=== PATIENT | male | born 1965 | race African-American/Black ===

== ENCOUNTER 2018-01-31 02:28 | Inpatient (IN) | payer MEDICAID ==
[~2018-01-31] VITALS: Ht 190.5 cm; Wt 115.7 kg
[~2018-01-31 02:28] MED LIST: AMLO5TAB88 PO; CEPH500C2 PO; LOSA100T14 MT; OMEP20TA15 PO
[2018-01-31] MEDS ORDERED: PIPERACILLIN/TAZ 3.375G PREMIX 50 ML IV ONE ×2 (05:15→09:00)
[2018-01-31] MEDS ORDERED: SODIUM CHLORIDE 0.9% 1000ML BAG (SEPSIS BOLUS) IV ONE (05:15)
[2018-01-31] MEDS ORDERED: VANCOMYCIN 1 G PREMIX 200 ML IV ONE ×2 (05:15→09:00)
[2018-01-31 06:02] LABS: EOSINOPHILS % 2.3 % (0.0-5.0); HEMATOCRIT. 35.4 % (42.0-52.0); HEMOGLOBIN. 12.1 g/dL (14.0-18.0); LYMPHOCYTES % 34.6 % (20.0-50.0); MEAN CORPUSCULAR HEMOGLOBIN 32.2 pg (28.0-32.0); MEAN CORPUSCULAR VOLUME 94.1 fL (80.0-94.0); MEAN PLATELET VOLUME 9.9 fl (7.4-10.4); MONOCYTES % 9.5 % (2.0-8.0); NEUTROPHILS % 51.6 % (40.0-76.0); PLATELET 248 x1000/uL (130-400); RED BLOOD CELL COUNT 3.76 mill/uL (4.7-6.1); RED CELL DISTRIBUTION WIDTH 15.5 % (11.6-14.6)
[2018-01-31 06:09] LABS: CHLORIDE 104 mEq/L (98-107)
[2018-01-31] MEDS ORDERED: AMLODIPINE 10MG TABLET PO ONE (09:30)
[2018-01-31 09:35] LABS: CLARITY URINE CLEAR (CLEAR); COLOR URINE YELLOW (YELLOW); KETONES URINE NEGATIVE (NEGATIVE); LEUKOCYTE ESTERASE URINE NEGATIVE (NEGATIVE); NITRITE URINE NEGATIVE (NEGATIVE); OCCULT BLOOD URINE NEGATIVE (NEGATIVE); PH URINE 6.5 (4.5-8.0); PROTEIN URINE NEGATIVE (NEGATIVE); SPECIFIC GRAVITY URINE 1.012 (1.005-1.030); UROBILINOGEN URINE 0.2 E.U./dL (0.2-1.0)
[2018-01-31] MEDS ORDERED: CLINDAMYCIN 900 MG in DEXTROSE 5% WATER 50 ML IV SCH (11:30)
[2018-01-31] MEDS ORDERED: ACETAMINOPHEN 325MG TABLET PO PRN (11:30)
[2018-01-31] MEDS: CLONIDINE 0.1MG TABLET PO PRN ×2 (11:50→19:34)
[2018-01-31] MEDS ORDERED: LABETALOL HCL 20MG/4ML CARPUJECT IV ONE (14:00)
[2018-01-31] MEDS: LOSARTAN POTASSIUM 100 MG TABLET PO SCH (15:50)
[2018-01-31] MEDS: NITROGLYCERIN OINT 1GM/INCH UDPKT TD SCH ×2 (15:50→22:39)
[2018-01-31] MEDS ORDERED: HYDRALAZINE 20MG/ML VIAL IV PRN ×2 (16:54→23:00)
[2018-01-31] MEDS ORDERED: METOPROLOL TARTRATE 50MG TABLET PO NR (18:36)
[2018-01-31 18:48] LABS: *COCAINE SCREEN URINE PRESUMTIVE POSITIVE (NEGATIVE); METHADONE URINE SCREEN NEGATIVE (NEGATIVE)
[2018-01-31 18:49] LABS: *AMPHETAMINES SCREEN URINE PRESUMTIVE POSITIVE (NEGATIVE); *BARBITURATES SCREEN URINE NEGATIVE (NEGATIVE); *BENZODIAZEPINES SCREEN URINE NEGATIVE (NEGATIVE); CANNABINOID URINE SCREEN NEGATIVE (NEGATIVE); OPIATES URINE SCREEN NEGATIVE (NEGATIVE); PHENCYCLIDINE URINE SCREEN NEGATIVE (NEGATIVE)
[2018-01-31 20:00] VITALS: BP 150/107
[2018-01-31 22:30] VITALS: BP 150/107
[2018-01-31] MEDS: AMLODIPINE 5MG TABLET PO SCH (22:39)
[2018-01-31] MEDS: METOPROLOL TARTRATE 50MG TABLET PO SCH (22:40)
[2018-02-01] VITALS (7 sets, daily range): BP systolic 115–159; BP diastolic 50–90
[2018-02-01] MEDS: CLINDAMYCIN 900 MG in DEXTROSE 5% WATER 50 ML IV SCH ×2 (00:40→08:26)
[2018-02-01] MEDS ORDERED: FURO-152 PO (06:30)
[2018-02-01] MEDS ORDERED: BENA20TA10 MT (06:32)
[2018-02-01] MEDS ORDERED: BENA20TA10 PO (06:32)
[2018-02-01] MEDS ORDERED: BICT1TAB PO (06:34)
[2018-02-01] MEDS ORDERED: CEPH500T MT (06:34)
[2018-02-01] MEDS: NITROGLYCERIN OINT 1GM/INCH UDPKT TD SCH ×3 (06:52→21:12)
[2018-02-01 08:13] LABS: BASOPHILS % 0.9 % (0.0-2.0); EOSINOPHILS % 1.6 % (0.0-5.0); HEMATOCRIT. 37.3 % (42.0-52.0); HEMOGLOBIN. 12.5 g/dL (14.0-18.0); LYMPHOCYTES % 28.6 % (20.0-50.0); MEAN CORPUSCULAR HEMOGLOBIN 31.7 pg (28.0-32.0); MEAN CORPUSCULAR VOLUME 94.4 fL (80.0-94.0); MEAN PLATELET VOLUME 10.3 fl (7.4-10.4); MONOCYTES % 7.9 % (2.0-8.0); PLATELET 249 x1000/uL (130-400); RED BLOOD CELL COUNT 3.95 mill/uL (4.7-6.1); RED CELL DISTRIBUTION WIDTH 15.7 % (11.6-14.6)
[2018-02-01] MEDS: AMLODIPINE 5MG TABLET PO SCH ×2 (08:27→21:12)
[2018-02-01] MEDS: LOSARTAN POTASSIUM 100 MG TABLET PO SCH (08:27)
[2018-02-01] MEDS: ENOXAPARIN 40MG/0.4ML SYR SUBCUT SCH (08:27)
[2018-02-01 08:33] LABS: CHLORIDE 105 mEq/L (98-107)
[2018-02-01] MEDS: METOPROLOL TARTRATE 50MG TABLET PO SCH ×2 (08:42→21:11)
[2018-02-01] MEDS ORDERED: VANCOMYCIN 1,500 MG in DEXT 5% WATER 250 ML IV NR (17:00)
[2018-02-01] MEDS ORDERED: VANCOMYCIN 1,500 MG in DEXT 5% WATER 500 ML IV NR (17:00)
[2018-02-02] VITALS: BP 147/79
[2018-02-02] MEDS: VANCOMYCIN 1 G PREMIX 200 ML IV SCH ×2 (01:19→09:18)
[2018-02-02 04:00] VITALS: BP 115/72
[2018-02-02] MEDS: NITROGLYCERIN OINT 1GM/INCH UDPKT TD SCH (06:16)
[2018-02-02 08:00] VITALS: BP 165/97
[2018-02-02 08:10] LABS: EOSINOPHILS % 2.1 % (0.0-5.0); HEMATOCRIT. 37.6 % (42.0-52.0); HEMOGLOBIN. 12.4 g/dL (14.0-18.0); LYMPHOCYTES % 33.6 % (20.0-50.0); MEAN CORPUSCULAR VOLUME 94.2 fL (80.0-94.0); MEAN PLATELET VOLUME 9.8 fl (7.4-10.4); MONOCYTES % 11.2 % (2.0-8.0); NEUTROPHILS % 52.1 % (40.0-76.0); PLATELET 243 x1000/uL (130-400); RED BLOOD CELL COUNT 3.99 mill/uL (4.7-6.1)
[2018-02-02 09:06] LABS: ABSOLUTE EOSINOPHILS 0.1 x10E3/uL (0.0-0.4); ABSOLUTE LYMPHOCYTES 1.5 x10E3/uL (0.7-3.1); ABSOLUTE MONOCYTES 0.3 x10E3/uL (0.1-0.9); BASOPHILS 1 % (Not Estab.); HEMATOCRIT 36.6 % (37.5-51.0); IMMATURE GRANULOCYTES 0 % (Not Estab.); LYMPHOCYTES 38 % (Not Estab.); MEAN CORPUSCULAR HEMOGLOBIN 30.8 pg (26.6-33.0); MEAN CORPUSCULAR HGB CONC. 32.8 g/dL (31.5-35.7); MEAN CORPUSCULAR VOLUME 94 fL (79-97); MONOCYTES 8 % (Not Estab.); NEUTROPHILS 50 % (Not Estab.); PLATELETS 303 x10E3/uL (150-379); RED CELL DISTRIBUTION WIDTH 15.6 % (12.3-15.4)
[2018-02-02] MEDS: METOPROLOL TARTRATE 50MG TABLET PO SCH (09:17)
[2018-02-02] MEDS: LOSARTAN POTASSIUM 100 MG TABLET PO SCH (09:17)
[2018-02-02] MEDS: AMLODIPINE 5MG TABLET PO SCH (09:17)
[2018-02-02] MEDS: ENOXAPARIN 40MG/0.4ML SYR SUBCUT SCH (09:18)
[2018-02-02 11:00] LABS: CHLORIDE 104 mEq/L (98-107)
[2018-02-02 12:00] VITALS: BP 130/71
[2018-02-02 13:11] LABS: % CD 3 POS. LYMPHOCYTES 88.5 % (57.5-86.2); % CD 4 POS. LYMPHOCYTES 46.4 % (30.8-58.5); % CD 8 POS. LYMPH 42.9 % (12.0-35.5); ABSOLUTE CD 3 1328 /uL (622-2402); ABSOLUTE CD 4 HELPER 696 /uL (359-1519); ABSOLUTE CD 8 SUPPRESSOR 644 /uL (109-897); CD4/CD8 RATIO 1.08 (0.92-3.72)
[2018-02-02 16:00] VITALS: BP 134/85
[2018-02-02] MEDS: DILTIAZEM HCL 90MG TABLET PO SCH (18:25)
[2018-02-02 20:34] VITALS: BP 135/78
[2018-02-02] MEDS: ENOXAPARIN 30MG/0.3ML SYR SUBCUT SCH (21:58)
[2018-02-02] MEDS ORDERED: VANCOMYCIN 1500MG in DEXTROSE 5% WATER 250ML IV SCH (22:00)
[2018-02-02] MEDS: VANCOMYCIN 1500MG in DEXTROSE 5% WATER 250ML IV SCH (23:47)
[2018-02-03 00:05] VITALS: BP 129/81
[2018-02-03] MEDS: DILTIAZEM HCL 90MG TABLET PO SCH ×4 (00:11→18:29)
[2018-02-03 04:00] VITALS: BP 145/91
[2018-02-03 08:00] VITALS: BP 127/86
[2018-02-03] MEDS: LOSARTAN POTASSIUM 100 MG TABLET PO SCH (08:56)
[2018-02-03] MEDS: ENOXAPARIN 30MG/0.3ML SYR SUBCUT SCH ×2 (08:56→21:23)
[2018-02-03] MEDS: VANCOMYCIN 1500MG in DEXTROSE 5% WATER 250ML IV SCH ×2 (09:41→21:23)
[2018-02-03 11:22] LABS: BASOPHILS % 0.9 % (0.0-2.0); EOSINOPHILS % 2.7 % (0.0-5.0); HEMATOCRIT. 38.1 % (42.0-52.0); HEMOGLOBIN. 12.9 g/dL (14.0-18.0); LYMPHOCYTES % 32.7 % (20.0-50.0); MEAN CORPUSCULAR HEMOGLOBIN 31.9 pg (28.0-32.0); MEAN PLATELET VOLUME 10.1 fl (7.4-10.4); MONOCYTES % 10.5 % (2.0-8.0); NEUTROPHILS % 53.2 % (40.0-76.0); PLATELET 228 x1000/uL (130-400); RED BLOOD CELL COUNT 4.05 mill/uL (4.7-6.1); RED CELL DISTRIBUTION WIDTH 14.8 % (11.6-14.6)
[2018-02-03 12:00] VITALS: BP 143/86
[2018-02-03 12:00] LABS: CHLORIDE 101 mEq/L (98-107)
[2018-02-03 16:00] VITALS: BP 160/93
[2018-02-03 20:00] VITALS: BP 131/73
[2018-02-04] VITALS (7 sets, daily range): BP systolic 125–153; BP diastolic 62–96
[2018-02-04] MEDS: DILTIAZEM HCL 90MG TABLET PO SCH ×4 (00:43→18:08)
[2018-02-04 07:24] LABS: BASOPHILS % 0.7 % (0.0-2.0); EOSINOPHILS % 2.6 % (0.0-5.0); HEMOGLOBIN. 13.5 g/dL (14.0-18.0); LYMPHOCYTES % 38.1 % (20.0-50.0); MEAN CORPUSCULAR HEMOGLOBIN 31.5 pg (28.0-32.0); MEAN CORPUSCULAR VOLUME 93.8 fL (80.0-94.0); MEAN PLATELET VOLUME 9.7 fl (7.4-10.4); MONOCYTES % 9.7 % (2.0-8.0); NEUTROPHILS % 48.9 % (40.0-76.0); PLATELET 235 x1000/uL (130-400); RED BLOOD CELL COUNT 4.27 mill/uL (4.7-6.1); RED CELL DISTRIBUTION WIDTH 14.8 % (11.6-14.6)
[2018-02-04 07:42] LABS: CHLORIDE 102 mEq/L (98-107)
[2018-02-04] MEDS: LOSARTAN POTASSIUM 100 MG TABLET PO SCH (08:59)
[2018-02-04] MEDS: VANCOMYCIN 1500MG in DEXTROSE 5% WATER 250ML IV SCH ×2 (10:10→22:12)
[2018-02-04] MEDS: ENOXAPARIN 30MG/0.3ML SYR SUBCUT SCH ×2 (10:11→22:12)
[2018-02-05] VITALS: BP 138/73
[2018-02-05] MEDS: DILTIAZEM HCL 90MG TABLET PO SCH ×4 (00:52→17:33)
[2018-02-05 04:00] VITALS: BP 159/89
[2018-02-05 07:37] LABS: EOSINOPHILS % 2.4 % (0.0-5.0); HEMATOCRIT. 39.4 % (42.0-52.0); HEMOGLOBIN. 13.2 g/dL (14.0-18.0); LYMPHOCYTES % 34.5 % (20.0-50.0); MEAN CORPUSCULAR HEMOGLOBIN 31.4 pg (28.0-32.0); MEAN CORPUSCULAR VOLUME 93.8 fL (80.0-94.0); MONOCYTES % 9.6 % (2.0-8.0); NEUTROPHILS % 52.5 % (40.0-76.0); PLATELET 221 x1000/uL (130-400); RED CELL DISTRIBUTION WIDTH 14.8 % (11.6-14.6)
[2018-02-05 08:06] LABS: CHLORIDE 103 mEq/L (98-107)
[2018-02-05 08:21] VITALS: BP 165/97
[2018-02-05] MEDS: LOSARTAN POTASSIUM 100 MG TABLET PO SCH (09:00)
[2018-02-05] MEDS: ENOXAPARIN 30MG/0.3ML SYR SUBCUT SCH ×2 (09:00→20:32)
[2018-02-05] MEDS: VANCOMYCIN 1500MG in DEXTROSE 5% WATER 250ML IV SCH ×2 (09:52→21:58)
[2018-02-05 12:00] VITALS: BP 124/62
[2018-02-05 16:00] VITALS: BP 129/79
[2018-02-05 20:00] VITALS: BP 144/72
[2018-02-06] VITALS: BP 148/85
[2018-02-06] MEDS: DILTIAZEM HCL 90MG TABLET PO SCH ×4 (00:02→18:33)
[2018-02-06 04:00] VITALS: BP 160/77
[2018-02-06 08:00] VITALS: BP 143/82
[2018-02-06] MEDS: ENOXAPARIN 30MG/0.3ML SYR SUBCUT SCH ×2 (08:47→20:19)
[2018-02-06] MEDS: LOSARTAN POTASSIUM 100 MG TABLET PO SCH (08:47)
[2018-02-06] MEDS: VANCOMYCIN 1500MG in DEXTROSE 5% WATER 250ML IV SCH ×2 (10:01→21:26)
[2018-02-06 12:00] VITALS: BP 137/76
[2018-02-06] MEDS: TAMSULOSIN HCL 0.4MG SR CAPSULE PO SCH (14:02)
[2018-02-06 16:00] VITALS: BP 138/89
[2018-02-06 20:00] VITALS: BP 165/85
[2018-02-06] MEDS: CLONIDINE 0.1MG TABLET PO PRN (20:49)
[2018-02-07] VITALS: BP 137/73
[2018-02-07] MEDS: DILTIAZEM HCL 90MG TABLET PO SCH ×5 (00:02→23:24)
[2018-02-07 04:00] VITALS: BP 129/74
[2018-02-07 07:35] LABS: BASOPHILS % 0.9 % (0.0-2.0); EOSINOPHILS % 3.2 % (0.0-5.0); HEMATOCRIT. 38.7 % (42.0-52.0); HEMOGLOBIN. 13.1 g/dL (14.0-18.0); LYMPHOCYTES % 31.5 % (20.0-50.0); MEAN CORPUSCULAR HEMOGLOBIN 31.8 pg (28.0-32.0); MEAN CORPUSCULAR VOLUME 94.4 fL (80.0-94.0); MEAN PLATELET VOLUME 10.1 fl (7.4-10.4); MONOCYTES % 11.5 % (2.0-8.0); NEUTROPHILS % 52.9 % (40.0-76.0); PLATELET 198 x1000/uL (130-400); RED BLOOD CELL COUNT 4.11 mill/uL (4.7-6.1); RED CELL DISTRIBUTION WIDTH 15.1 % (11.6-14.6)
[2018-02-07 08:00] VITALS: BP 131/85
[2018-02-07] MEDS: LOSARTAN POTASSIUM 100 MG TABLET PO SCH (08:41)
[2018-02-07] MEDS: TAMSULOSIN HCL 0.4MG SR CAPSULE PO SCH (08:42)
[2018-02-07] MEDS: ENOXAPARIN 30MG/0.3ML SYR SUBCUT SCH ×2 (08:44→21:22)
[2018-02-07 08:54] LABS: CHLORIDE 104 mEq/L (98-107)
[2018-02-07] MEDS: VANCOMYCIN 1500MG in DEXTROSE 5% WATER 250ML IV SCH ×2 (11:18→21:22)
[2018-02-07 12:00] VITALS: BP 129/76
[2018-02-07 16:00] VITALS: BP 116/63
[2018-02-07 20:00] VITALS: BP 126/77
[2018-02-08] VITALS: BP 152/94
[2018-02-08 04:00] VITALS: BP 144/96
[2018-02-08] MEDS: DILTIAZEM HCL 90MG TABLET PO SCH ×2 (05:15→06:30)
[2018-02-08 08:00] VITALS: BP 150/93
[2018-02-08] MEDS: LOSARTAN POTASSIUM 100 MG TABLET PO SCH (08:30)
[2018-02-08] MEDS: ENOXAPARIN 30MG/0.3ML SYR SUBCUT SCH (08:30)
[2018-02-08] MEDS: TAMSULOSIN HCL 0.4MG SR CAPSULE PO SCH (08:30)
[2018-02-08 09:06] LABS: HIV 1 ABS Positive (Negative); HIV 2 ABS Negative (Negative); HIV SCREEN 4G Reactive (Non Reactive); INTERPRETATION HIV-1 Positive (.)
[2018-02-08] MEDS: VANCOMYCIN 1500MG in DEXTROSE 5% WATER 250ML IV SCH (10:00)
[2018-02-08 11:13] VITALS: BP 150/93
== END 2018-02-08 14:45 | disposition home or self-care (01) | DRG 894 ==
LOC: ER 02:28 → 5WST 09:17 → ENRESERV 09:19 → CANRESERV 09:19 → EDBEDREQ 09:34 → EDBEDREQTM 09:34 → EDBEDREQSVC 09:34 → CANRESERV 15:24 → ENRESERV 15:24
PROVIDERS: ADMIT Internal Medicine; ATTEND Internal Medicine
PROC: 0JBQ0ZZ Excision of Right Foot Subcutaneous Tissue and Fascia, Open Approach (ICD-10-PCS; principal; 2018-02-04)
DX: B20 Human immunodeficiency virus [HIV] disease (principal); E11.40 Type 2 diabetes mellitus with diabetic neuropathy, unspecified; E11.621 Type 2 diabetes mellitus with foot ulcer; I07.1 Rheumatic tricuspid insufficiency; M86.8X8 Other osteomyelitis, other site; L03.115 Cellulitis of right lower limb; F14.10 Cocaine abuse, uncomplicated; F15.10 Other stimulant abuse, uncomplicated; F17.200 Nicotine dependence, unspecified, uncomplicated; I50.9 Heart failure, unspecified; I11.0 Hypertensive heart disease with heart failure; J44.9 Chronic obstructive pulmonary disease, unspecified; E11.69 Type 2 diabetes mellitus with other specified complication; E78.5 Hyperlipidemia, unspecified; I35.1 Nonrheumatic aortic (valve) insufficiency; L03.032 Cellulitis of left toe; L84 Corns and callosities; M20.10 Hallux valgus (acquired), unspecified foot; D50.0 Iron deficiency anemia secondary to blood loss (chronic); Z71.6 Tobacco abuse counseling; Z59.0 Homelessness
CPT/HCPCS: 36415; 71045; 73721; 80048; 80202; 80305; 82962; 83036; 83605; 83880; 84145; 84484; 86359; 86360; 86701; 86702; 87389; 93005; 93306; 93971; 96365; 97116; 97162; 97530; 99285; 99406; J0360; J1650; J2543; J3370; J3490; J7030; J7050; J7060

== ENCOUNTER 2018-03-14 05:47 | Inpatient (IN) | payer MEDICAID, OTHER ==
[~2018-03-14] VITALS: Ht 190.5 cm; Wt 113.4 kg
[~2018-03-14 05:47] MED LIST changes: -AMLO5TAB88 PO; +BICT1TAB PO; -CEPH500C2 PO; +FURO-152 PO
[2018-03-14 06:48] LABS: BASOPHILS % 1.1 % (0.0-2.0); HEMATOCRIT. 33.9 % (42.0-52.0); HEMOGLOBIN. 11.4 g/dL (14.0-18.0); LYMPHOCYTES % 16.3 % (20.0-50.0); MEAN CORPUSCULAR HEMOGLOBIN 31.9 pg (28.0-32.0); MEAN CORPUSCULAR VOLUME 94.8 fL (80.0-94.0); MEAN PLATELET VOLUME 9.8 fl (7.4-10.4); NEUTROPHILS % 69.6 % (40.0-76.0); PLATELET 186 x1000/uL (130-400); RED BLOOD CELL COUNT 3.57 mill/uL (4.7-6.1); RED CELL DISTRIBUTION WIDTH 15.2 % (11.6-14.6)
[2018-03-14 06:54] LABS: CHLORIDE 104 mEq/L (98-107)
[2018-03-14] MEDS ORDERED: CLINDAMYCIN 600 MG in DEXTROSE 5% WATER 50 ML IV ONE (07:30)
[2018-03-14] MEDS ORDERED: MAGNESIUM/ALUMINUM HYDROXIDE/SIMETHICONE 30ML UDC PO PRN (09:00)
[2018-03-14] MEDS ORDERED: DOCUSATE SODIUM 100MG CAPSULE PO PRN (09:00)
[2018-03-14] MEDS ORDERED: ENOXAPARIN 40MG/0.4ML SYR SUBCUT SCH (09:00)
[2018-03-14] MEDS ORDERED: ONDANSETRON HCL 4MG/2ML INJ IV PRN (09:00)
[2018-03-14] MEDS ORDERED: CLONIDINE 0.1MG TABLET PO PRN (09:00)
[2018-03-14] MEDS ORDERED: IPRATROPIUM/ALBUTEROL 0.5-3(2.5)MG/3ML NEB INH PRN (09:00)
[2018-03-14] MEDS ORDERED: ACETAMINOPHEN 325MG TABLET PO PRN (09:00)
[2018-03-14 12:23] LABS: HEPATITIS B SURFACE ANTIGEN NEGATIVE
[2018-03-14 12:53] LABS: HEPATITIS A AB IGM NEGATIVE (NEGATIVE)
[2018-03-14] MEDS: CLONIDINE 0.1MG TABLET PO SCH ×2 (13:30→21:15)
[2018-03-14 14:39] LABS: CLARITY URINE CLEAR (CLEAR); COLOR URINE YELLOW (YELLOW); KETONES URINE NEGATIVE (NEGATIVE); LEUKOCYTE ESTERASE URINE NEGATIVE (NEGATIVE); NITRITE URINE NEGATIVE (NEGATIVE); OCCULT BLOOD URINE NEGATIVE (NEGATIVE); PH URINE 7.5 (4.5-8.0); PROTEIN URINE NEGATIVE (NEGATIVE); SPECIFIC GRAVITY URINE 1.007 (1.005-1.030); UROBILINOGEN URINE 0.2 E.U./dL (0.2-1.0)
[2018-03-14 15:18] LABS: *AMPHETAMINES SCREEN URINE PRESUMTIVE POSITIVE (NEGATIVE); *BARBITURATES SCREEN URINE NEGATIVE (NEGATIVE); *BENZODIAZEPINES SCREEN URINE NEGATIVE (NEGATIVE); *COCAINE SCREEN URINE PRESUMTIVE POSITIVE (NEGATIVE); METHADONE URINE SCREEN NEGATIVE (NEGATIVE); OPIATES URINE SCREEN NEGATIVE (NEGATIVE)
[2018-03-14 15:19] LABS: CANNABINOID URINE SCREEN NEGATIVE (NEGATIVE); PHENCYCLIDINE URINE SCREEN NEGATIVE (NEGATIVE)
[2018-03-14] MEDS ORDERED: EMTRICITABINE 200MG CAPSULE PO SCH (16:15)
[2018-03-14] MEDS ORDERED: TENOFOVIR 300MG TABLET PO SCH (16:15)
[2018-03-14 18:57] VITALS: BP 143/81
[2018-03-14 20:00] VITALS: BP 137/90
[2018-03-14] MEDS: AMLODIPINE 5MG TABLET PO SCH (21:14)
[2018-03-14] MEDS: OMEPRAZOLE 20MG CAPSULE EXTENDED RELEASE PO SCH (21:14)
[2018-03-14] MEDS: ENOXAPARIN 30MG/0.3ML SYR SUBCUT SCH (21:15)
[2018-03-14] MEDS ORDERED: NIFE60TA64 MT (22:03)
[2018-03-15] VITALS: BP 143/96
[2018-03-15 04:00] VITALS: BP 138/95
[2018-03-15] MEDS: OMEPRAZOLE 20MG CAPSULE EXTENDED RELEASE PO SCH ×2 (06:25→20:47)
[2018-03-15] MEDS: CLONIDINE 0.1MG TABLET PO SCH ×3 (06:26→20:48)
[2018-03-15 06:29] LABS: BASOPHILS % 0.7 % (0.0-2.0); HEMATOCRIT. 38.6 % (42.0-52.0); HEMOGLOBIN. 12.9 g/dL (14.0-18.0); MEAN CORPUSCULAR HEMOGLOBIN 31.9 pg (28.0-32.0); MEAN CORPUSCULAR VOLUME 95.1 fL (80.0-94.0); MEAN PLATELET VOLUME 9.9 fl (7.4-10.4); NEUTROPHILS % 75.3 % (40.0-76.0); PLATELET 208 x1000/uL (130-400); RED BLOOD CELL COUNT 4.06 mill/uL (4.7-6.1); RED CELL DISTRIBUTION WIDTH 15.4 % (11.6-14.6)
[2018-03-15 06:32] LABS: CHLORIDE 104 mEq/L (98-107)
[2018-03-15] MEDS ORDERED: TENOFOVIR ALAFENAMIDE 25 MG PO SCH (09:00)
[2018-03-15] MEDS ORDERED: EMTRICITABINE 200 MG PO SCH (09:00)
[2018-03-15] MEDS ORDERED: BICTEGRAVIR PO SCH (09:00)
[2018-03-15 09:06] LABS: ABSOLUTE EOSINOPHILS 0.1 x10E3/uL (0.0-0.4); ABSOLUTE LYMPHOCYTES 0.9 x10E3/uL (0.7-3.1); ABSOLUTE MONOCYTES 0.6 x10E3/uL (0.1-0.9); ABSOLUTE NEUTROPHILS 3.7 x10E3/uL (1.4-7.0); BASOPHILS 1 % (Not Estab.); HEMATOCRIT 36.5 % (37.5-51.0); HEMOGLOBIN 11.9 g/dL (13.0-17.7); IMMATURE GRANULOCYTES 0 % (Not Estab.); LYMPHOCYTES 16 % (Not Estab.); MEAN CORPUSCULAR HGB CONC. 32.6 g/dL (31.5-35.7); MEAN CORPUSCULAR VOLUME 95 fL (79-97); MONOCYTES 12 % (Not Estab.); NEUTROPHILS 69 % (Not Estab.); PLATELETS 228 x10E3/uL (150-379); RBC 3.84 x10E6/uL (4.14-5.80); RED CELL DISTRIBUTION WIDTH 15.4 % (12.3-15.4); WBC 5.4 x10E3/uL (3.4-10.8)
[2018-03-15] MEDS: AMLODIPINE 5MG TABLET PO SCH ×2 (10:13→20:48)
[2018-03-15] MEDS: ASPIRIN 81MG EC TABLET PO SCH (10:14)
[2018-03-15] MEDS: ENOXAPARIN 30MG/0.3ML SYR SUBCUT SCH ×2 (10:14→20:47)
[2018-03-15 13:09] LABS: % CD 3 POS. LYMPHOCYTES 85.7 % (57.5-86.2); % CD 4 POS. LYMPHOCYTES 51.4 % (30.8-58.5); % CD 8 POS. LYMPH 34.4 % (12.0-35.5); ABSOLUTE CD 3 771 /uL (622-2402); ABSOLUTE CD 4 HELPER 463 /uL (359-1519); ABSOLUTE CD 8 SUPPRESSOR 310 /uL (109-897); CD4/CD8 RATIO 1.49 (0.92-3.72)
[2018-03-15] MEDS ORDERED: VANCOMYCIN 2,000 MG in DEXT 5% WATER 500 ML IV NR (18:00)
[2018-03-15] MEDS: BIKTARVY PO SCH (18:31)
[2018-03-15 20:00] VITALS: BP 136/68
[2018-03-16] VITALS: BP 129/72
[2018-03-16] MEDS ORDERED: VANCOMYCIN 1 G PREMIX 200 ML IV SCH (02:00)
[2018-03-16 04:00] VITALS: BP 148/90
[2018-03-16] MEDS: CLONIDINE 0.1MG TABLET PO SCH ×3 (05:12→20:19)
[2018-03-16] MEDS: OMEPRAZOLE 20MG CAPSULE EXTENDED RELEASE PO SCH ×2 (06:21→20:20)
[2018-03-16 08:00] VITALS: BP 136/87
[2018-03-16 08:05] LABS: BASOPHILS % 0.7 % (0.0-2.0); EOSINOPHILS % 1.3 % (0.0-5.0); HEMOGLOBIN. 12.5 g/dL (14.0-18.0); MEAN CORPUSCULAR HEMOGLOBIN 31.4 pg (28.0-32.0); MEAN CORPUSCULAR VOLUME 95.2 fL (80.0-94.0); MEAN PLATELET VOLUME 9.6 fl (7.4-10.4); MONOCYTES % 9.1 % (2.0-8.0); NEUTROPHILS % 67.9 % (40.0-76.0); PLATELET 201 x1000/uL (130-400); RED BLOOD CELL COUNT 3.99 mill/uL (4.7-6.1); RED CELL DISTRIBUTION WIDTH 15.4 % (11.6-14.6)
[2018-03-16 08:07] LABS: CHLORIDE 103 mEq/L (98-107)
[2018-03-16] MEDS: BIKTARVY PO SCH (08:29)
[2018-03-16] MEDS: ASPIRIN 81MG EC TABLET PO SCH (08:29)
[2018-03-16] MEDS: AMLODIPINE 5MG TABLET PO SCH ×2 (08:29→20:20)
[2018-03-16] MEDS: ENOXAPARIN 30MG/0.3ML SYR SUBCUT SCH ×2 (08:30→20:19)
[2018-03-16] MEDS ORDERED: TENOFOVIR ALAFENAMIDE 25 MG PO SCH (09:00)
[2018-03-16] MEDS ORDERED: EMTRICITABINE 200 MG PO SCH (09:00)
[2018-03-16] MEDS ORDERED: BICTEGRAVIR PO SCH (09:00)
[2018-03-16 12:00] VITALS: BP 142/89
[2018-03-16] MEDS: VANCOMYCIN 1250MG in DEXTROSE 5% WATER 250ML IV SCH (14:13)
[2018-03-16 16:00] VITALS: BP 152/86
[2018-03-16 20:00] VITALS: BP_SYST 125; BP_SYST 155; BP_DIAS 88; BP_DIAS 90
[2018-03-17] VITALS: BP 139/85
[2018-03-17] MEDS: VANCOMYCIN 1250MG in DEXTROSE 5% WATER 250ML IV SCH ×2 (02:28→13:07)
[2018-03-17 04:00] VITALS: BP 162/92
[2018-03-17] MEDS: CLONIDINE 0.1MG TABLET PO SCH ×3 (05:38→22:53)
[2018-03-17] MEDS: OMEPRAZOLE 20MG CAPSULE EXTENDED RELEASE PO SCH ×2 (06:24→22:51)
[2018-03-17 07:00] LABS: BASOPHILS % 0.8 % (0.0-2.0); EOSINOPHILS % 2.3 % (0.0-5.0); HEMATOCRIT. 37.5 % (42.0-52.0); HEMOGLOBIN. 12.5 g/dL (14.0-18.0); LYMPHOCYTES % 33.4 % (20.0-50.0); MEAN CORPUSCULAR HEMOGLOBIN 31.7 pg (28.0-32.0); MEAN CORPUSCULAR VOLUME 95.1 fL (80.0-94.0); MEAN PLATELET VOLUME 9.8 fl (7.4-10.4); MONOCYTES % 14.2 % (2.0-8.0); NEUTROPHILS % 49.3 % (40.0-76.0); PLATELET 210 x1000/uL (130-400); RED BLOOD CELL COUNT 3.95 mill/uL (4.7-6.1); RED CELL DISTRIBUTION WIDTH 15.3 % (11.6-14.6)
[2018-03-17 07:08] LABS: CHLORIDE 103 mEq/L (98-107)
[2018-03-17 08:00] VITALS: BP 122/73
[2018-03-17] MEDS: ASPIRIN 81MG EC TABLET PO SCH (08:37)
[2018-03-17] MEDS: AMLODIPINE 5MG TABLET PO SCH ×2 (08:37→22:53)
[2018-03-17] MEDS: BIKTARVY PO SCH (08:38)
[2018-03-17] MEDS: ENOXAPARIN 30MG/0.3ML SYR SUBCUT SCH ×2 (08:38→22:55)
[2018-03-17 12:00] VITALS: BP 131/83
[2018-03-17] MEDS: HYDROCODONE/ACETAMINOPHEN 5/325MG TABLET PO PRN ×2 (13:07→23:07)
[2018-03-17] MEDS ORDERED: VANCOMYCIN 1500MG in DEXTROSE 5% WATER 250ML IV SCH (15:00)
[2018-03-17 15:06] LABS: *HIV-1 RNA BY PCR <20 copies/mL (.)
[2018-03-17 16:00] VITALS: BP 126/74
[2018-03-17 20:00] VITALS: BP 126/75
[2018-03-17] MEDS: VANCOMYCIN 1500MG in DEXTROSE 5% WATER 250ML IV SCH (22:55)
[2018-03-18] VITALS: BP 134/79
[2018-03-18] MEDS: VANCOMYCIN 1500MG in DEXTROSE 5% WATER 250ML IV SCH ×3 (05:42→21:06)
[2018-03-18] MEDS: CLONIDINE 0.1MG TABLET PO SCH ×3 (05:43→21:05)
[2018-03-18] MEDS: OMEPRAZOLE 20MG CAPSULE EXTENDED RELEASE PO SCH (06:23)
[2018-03-18 08:00] VITALS: BP 122/78
[2018-03-18] MEDS: BIKTARVY PO SCH (09:00)
[2018-03-18] MEDS: ENOXAPARIN 30MG/0.3ML SYR SUBCUT SCH ×2 (09:00→21:06)
[2018-03-18] MEDS: AMLODIPINE 5MG TABLET PO SCH ×2 (09:00→21:05)
[2018-03-18] MEDS: ASPIRIN 81MG EC TABLET PO SCH (09:00)
[2018-03-18 12:00] VITALS: BP 156/100
[2018-03-18 16:00] VITALS: BP 135/71
[2018-03-18 20:00] VITALS: BP 135/87
[2018-03-18] MEDS: FAMOTIDINE 20MG TABLET PO SCH (21:04)
[2018-03-18] MEDS: HYDROCODONE/ACETAMINOPHEN 5/325MG TABLET PO PRN (21:04)
[2018-03-19] VITALS: BP 132/84
[2018-03-19 04:00] VITALS: BP 130/78
[2018-03-19] MEDS: VANCOMYCIN 1500MG in DEXTROSE 5% WATER 250ML IV SCH ×3 (06:11→20:07)
[2018-03-19] MEDS: CLONIDINE 0.1MG TABLET PO SCH ×3 (06:13→21:43)
[2018-03-19] MEDS: HYDROCODONE/ACETAMINOPHEN 5/325MG TABLET PO PRN ×2 (06:14→13:43)
[2018-03-19 08:00] VITALS: BP 120/76
[2018-03-19] MEDS: ENOXAPARIN 30MG/0.3ML SYR SUBCUT SCH ×2 (09:44→20:07)
[2018-03-19] MEDS: ASPIRIN 81MG EC TABLET PO SCH (09:44)
[2018-03-19] MEDS: AMLODIPINE 5MG TABLET PO SCH ×2 (09:44→20:07)
[2018-03-19] MEDS: FAMOTIDINE 20MG TABLET PO SCH ×2 (09:44→20:07)
[2018-03-19] MEDS: BIKTARVY PO SCH (09:45)
[2018-03-19 12:00] VITALS: BP 146/95
[2018-03-19 16:00] VITALS: BP 133/87
[2018-03-19 20:00] VITALS: BP 121/73
[2018-03-20] VITALS: BP 116/78
[2018-03-20 04:00] VITALS: BP 146/80
[2018-03-20] MEDS: CLONIDINE 0.1MG TABLET PO SCH ×2 (05:03→13:17)
[2018-03-20] MEDS: VANCOMYCIN 1500MG in DEXTROSE 5% WATER 250ML IV SCH ×2 (05:09→13:17)
[2018-03-20 08:00] VITALS: BP 122/81
[2018-03-20] MEDS: BIKTARVY PO SCH (08:28)
[2018-03-20] MEDS: ASPIRIN 81MG EC TABLET PO SCH (08:29)
[2018-03-20] MEDS: AMLODIPINE 5MG TABLET PO SCH (08:29)
[2018-03-20] MEDS: ENOXAPARIN 30MG/0.3ML SYR SUBCUT SCH (08:29)
[2018-03-20] MEDS: FAMOTIDINE 20MG TABLET PO SCH (08:33)
[2018-03-20] MEDS: HYDROCODONE/ACETAMINOPHEN 5/325MG TABLET PO PRN (08:33)
[2018-03-20 12:00] VITALS: BP 120/87
[2018-03-20 15:02] VITALS: BP 120/87
== END 2018-03-20 16:10 | disposition home or self-care (01) | DRG 361 ==
LOC: ER 05:47 → 6EST 08:46 → EDBEDREQTM 08:49 → EDBEDREQ 08:49 → EDBEDREQSVC 08:50 → EDBEDREQTM 08:50 → ENRESERV 15:55
PROVIDERS: ADMIT Internal Medicine; ATTEND Internal Medicine
PROC: 0HBRXZZ Excision of Toe Nail, External Approach (ICD-10-PCS; principal; 2018-03-15)
PROC: 0HBNXZZ Excision of Left Foot Skin, External Approach (ICD-10-PCS; 2018-03-15)
DX: L84 Corns and callosities (principal); B20 Human immunodeficiency virus [HIV] disease; I11.0 Hypertensive heart disease with heart failure; I07.1 Rheumatic tricuspid insufficiency; I50.9 Heart failure, unspecified; M86.9 Osteomyelitis, unspecified; G62.9 Polyneuropathy, unspecified; L97.519 Non-pressure chronic ulcer of other part of right foot with unspecified severity; L03.115 Cellulitis of right lower limb; T69.021A Immersion foot, right foot, initial encounter; L03.116 Cellulitis of left lower limb; F14.10 Cocaine abuse, uncomplicated; F15.10 Other stimulant abuse, uncomplicated; F17.210 Nicotine dependence, cigarettes, uncomplicated; G47.33 Obstructive sleep apnea (adult) (pediatric); I25.10 Atherosclerotic heart disease of native coronary artery without angina pectoris; K21.9 Gastro-esophageal reflux disease without esophagitis; L60.0 Ingrowing nail; L60.3 Nail dystrophy; S92.353A Displaced fracture of fifth metatarsal bone, unspecified foot, initial encounter for closed fracture; J44.9 Chronic obstructive pulmonary disease, unspecified; E66.9 Obesity, unspecified; X58.XXXA Exposure to other specified factors, initial encounter; Y93.89 Activity, other specified; Y92.89 Other specified places as the place of occurrence of the external cause; Y99.8 Other external cause status; Z59.0 Homelessness; Z71.6 Tobacco abuse counseling; Z71.51 Drug abuse counseling and surveillance of drug abuser
CPT/HCPCS: 36415; 71045; 73630; 80048; 80202; 80305; 83880; 84443; 84484; 84550; 86359; 86360; 86705; 86709; 86803; 87340; 87536; 93005; 93971; 96374; 97116; 97162; 97166; 97530; 99285; C1893; J1650; J3370; J3490; J7040; J7060

== ENCOUNTER 2018-05-01 23:17 | Emergency (ER) | payer MEDICAID, OTHER ==
[~2018-05-01] VITALS: Ht 182.9 cm; Wt 118.0 kg
[~2018-05-01 23:17] MED LIST changes: +NIFE60TA64 MT
[2018-05-02 03:03] VITALS: BP 190/103
== END 2018-05-02 05:27 | disposition left against medical advice (07) ==
LOC: ER 23:17
DX: Z53.21 Procedure and treatment not carried out due to patient leaving prior to being seen by health care provider (principal); K21.9 Gastro-esophageal reflux disease without esophagitis; I10 Essential (primary) hypertension; F17.200 Nicotine dependence, unspecified, uncomplicated; B20 Human immunodeficiency virus [HIV] disease

== ENCOUNTER 2018-05-02 11:48 | Emergency (ER) | payer MEDICAID ==
[~2018-05-02] VITALS: Ht 190.5 cm; Wt 114.0 kg
[2018-05-02 16:48] VITALS: BP 161/104
== END 2018-05-02 20:10 | disposition left against medical advice (07) ==
LOC: ER 12:38
DX: S71.101A Unspecified open wound, right thigh, initial encounter (principal); I11.0 Hypertensive heart disease with heart failure; I50.9 Heart failure, unspecified; I73.9 Peripheral vascular disease, unspecified; B20 Human immunodeficiency virus [HIV] disease; X58.XXXA Exposure to other specified factors, initial encounter
CPT/HCPCS: 99283